=== PATIENT | female | born 1980 | race Two or more races ===

== ENCOUNTER → 2025-10-18 | Outpatient (CLI) | payer MEDICAID, SELFPAY ==
--- NOTE | 2025-10-18 11:00 | XR_ITS ---
Examination: Breast ultrasound, unilateral, left complete Date and time of exam: October 18, 2025, 1134 hours INDICATIONS: Outside mammogram June 07, 2025 focal asymmetry upper outer left breast anterior depth Technique: Real-time pulliam scale ultrasonographic imaging performed left breast including all 4 quadrants as well as nipple retroareolar and axillary region. Findings: 12:00 cyst 4 x 4 mm No solid nodules IMPRESSION: BI-RADS Category 2: Benign findings
--- NOTE | 2025-10-18 11:30 | XR_ITS ---
Examination: Diagnostic digital mammography, unilateral, left Computer aided detection 3-D breast Tomosynthesis, unilateral Date and time of exam: October 18, 2025, 1129 hours INDICATIONS: Outside mammogram June 07, 2000 2511 mm focal asymmetry upper outer left breast anterior depth Technique: Nonmagnified MLO, CC views of the left breast have been obtained, reconstructed from 3-D Tomosynthesis images. R2 computer aided detection program utilized for evaluation of suspicious masses and/or abnormal calcifications. 3-D Tomosynthesis images obtained. Findings: The breast is heterogeneously dense, which may obscure small masses Focal asymmetry remains upper left breast on the MLO view, anterior depth, 13 mm Impression: BI-RADS category 3: Probably benign findings Recommend 1 additional 6-month left mammogram follow-up
== END | disposition home or self-care (01) ==
PROVIDERS: PCP Nurse Practitioner Family; Referring Provider Nurse Practitioner Family; Visit Provider Nurse Practitioner Family
DX: R92.8 Other abnormal and inconclusive findings on diagnostic imaging of breast (principal)
CPT/HCPCS: 76641; 77061; 77065; G0279